=== PATIENT | female | born 1965 | race Two or more races ===

== ENCOUNTER 2018-04-24 14:30 | Outpatient (RCR) | payer OTHER, SELFPAY ==
--- NOTE | 2018-03-27 14:28 | HP.PTEVAL_ITS ---
Patient's Visit Information MAGDA SHIELDS is a 52 year old F referred to Physical Therapy by Lv Alvares MD with a diagnosis of RIGHT ANKLE INJURY /FRACTURE. Date of Evaluation: 03/27/18 Physical Therapist: Juan Rojas PT, - Visit Plan Frequency: 1-2x /Week Duration: 4 Weeks Plan: intiate strengthing /proprioception ex's for ankle,flexablity calf, progress to LE ex's at gym on own. ,genralized crosstraining bike/eliptical - Subjective Subjective: This 52 y/o female presents to physical therapy with right ankle injury /fracture. Patient was 5k run twisted right ankle caused immediated pain.DOI injury January 13. Patient went to ER [facility] did x-rays non-displace fx fibula. Patient was in boot 8weeks . Patient was NWB right ankle 2weeks ,then progressed to WBAT gradually went to cruthes.Patient removed boot 2weeks ago and progressed to no device. Patient conts to have snapping lateral ankle, Denies parathesia/tingling. Patient able to do stairs.Patient goal is to return no limiations with ADL'S and job demands.Patient had x-rays 6weeks looked good. SOCIAL: . VOCATION: coun[employer] - Pain Right Ankle Pain Intensity (Out of 10): 1 Pain Intensity Range: 10 - Objective POSTURE: normal arch. GAIT: normal nai reciprocal pattern. PROPRIOCEPTION : intcat. AROM: dorsiflexion 10 degrees,plantarflexion 65 degrees,eversion 10 degrees ,inversion 45 degrees. MMT: peroneous/dorsiflexion/plantarflexion / posterior tibials 4/5. NEURO:intact. FLEXABLITY: G-SOLEUS WFL - Goals Goal 1:: Patient to be Independant with HEP Goal Time Frame: 2-4 Weeks Goal 2:: Patient improve proprioception left compared right normal Goal Time Frame: 2-4 Weeks Goal 3:: Patient have no pain with progression of strengthening and proprioception. Goal Time Frame: 2-4 Weeks Goal 4:: Patient gradually progress to light jogging without symptoms Goal Time Frame: 2-4 Weeks - Rehabilitation Potential Physical Therapy Diagnosis: This 52 y/o female sustained fx fibula January 13 boot 8weeks progessed FWB no pain c/o ocassionally popping lateral tendon better, goal to retun to running Rehabilitation Potential: Good - Anticipated Interventions Patient/Client Instruction: Educate patient on: Condition, Plan of Care For the Purpose of:: To increase ROM, To improve muscle performance and motor function, To increase tolerance to activity/condition/position, To improve ability of physical actions for home/community/work/leisure, To improve gait and locomotor functions, To increase flexibility/ROM, To improve ability to perform tasks related to life management Other: running Therapeutic Exercise to Include: Strength training, Flexibilty training, Passive ROM, Active ROM Comment: ankle,proprioception For the Purpose of:: To increase ROM, To improve muscle performance and motor function, To improve ability to perform ADL's, To increase tolerance to activity /condition/position, To improve performance and independence with ADL's, To improve ability of physical actions for home/community/work/leisure, To improve health of tissue, To decrease soft tissue restriction, To increase flexibility/ ROM, To improve endurance Other: running Thank you for the opportunity to evaluate your patient. For Medicare and Medicare HMO plans, please review the plan of care and approve it. It will need to be FAXED BACK to us at [phone] for Medicare purposes. Please let me know if there are questions or concerns regarding this plan of care. Physician Signature: Date:
--- NOTE | 2018-08-15 14:09 | HP.PT.NRP ---
HP - Discharge Summary (1) - Patient Information MAGDA SHIELDS was seen in my office for initial evaluation on 03/27/18. The following Plan of Care was established for this patient: Initial Frequency: 1-2x /Week Initial Duration: 4 Weeks - Anticipated Interventions Patient/Client Instruction: Educate patient on: Condition, Plan of Care For the Purpose of:: To increase ROM, To improve muscle performance and motor function, To increase tolerance to activity/condition/position, To improve ability of physical actions for home/community/work/leisure, To improve gait and locomotor functions, To increase flexibility/ROM, To improve ability to perform tasks related to life management Other: running Therapeutic Exercise to Include: Strength training, Flexibilty training, Passive ROM, Active ROM For the Purpose of:: To increase ROM, To improve muscle performance and motor function, To improve ability to perform ADL's, To increase tolerance to activity/condition/position, To improve performance and independence with ADL's, To improve ability of physical actions for home/community/work/leisure, To improve health of tissue, To decrease soft tissue restriction, To increase flexibility/ROM, To improve endurance Other: running This patient was last seen in our office . Pertinent comments regarding their Physical therapy will appear below: At this point I will be discontinuing this patient from physical therapy. I would be happy to see this patient again in the future if found appropriate by the physician. Thank you! Juan Rojas, PT, Cert MDT, OCS
== END 2018-04-24 19:00 | disposition home or self-care (01) ==
LOC: PT 14:30
PROVIDERS: Family Provider Family Medicine; PCP Family Medicine; Visit Provider Family Medicine
DX: S82.891D Other fracture of right lower leg, subsequent encounter for closed fracture with routine healing (principal)
CPT/HCPCS: 97110; 97161

== ENCOUNTER → 2018-06-19 18:46 | Outpatient (CLI) | payer OTHER, SELFPAY ==
[2018-06-25 11:43] LABS: HPV APTIMA, High Risk Negative (Negative)
== END ==
PROVIDERS: Family Provider Family Medicine; PCP Family Medicine; Referring Provider Obstetrics & Gynecology; Visit Provider Obstetrics & Gynecology
DX: Z12.4 Encounter for screening for malignant neoplasm of cervix (principal)
CPT/HCPCS: 87624; 88175; G0145

== ENCOUNTER → 2019-07-16 16:18 | Outpatient (CLI) | payer OTHER, SELFPAY ==
[2019-07-16 17:54] LABS: Absolute Lymphocyte Count 1.69 X10^3/uL (0.83-4.51); Absolute Neutrophil Count 2.9 X10^3/uL (2.0-7.7); Basophil# 0.07 X10^3/uL; Basophil% 1.4 % (0-1); Hematocrit 40.7 % (37-47); Hemoglobin 13.3 g/dL (12.0-15.0); Lymphocyte # 1.69 X10^3/ul (4.0); Lymphocyte % 33.1 % (19-41); Mean Corp Hgb Conc 32.7 g/dL (32-36); Mean Corpuscular Hgb 30.8 pg (27.0-32.0); Mean Corpuscular Volume 94.2 fL (81-99); Mean Platelet Vol. 9.8 fl (6.2-12.0); Monocyte# 0.38 X10^3/uL; Monocyte% 7.5 % (0-10); NRBC Flagged by Analyzer 0 % (0-5); Neutrophil # 2.85 X10^3/uL (2.7-7.7); Neutrophil % 55.8 % (47-70); Platelet Count 292 K/mm3 (150-450); RBC Distribution Width CV 13.2 % (11.6-14.6); RBC Distribution Width SD 46.2 fl (35.1-43.9); Red Blood Count 4.32 M/mm3 (4.2-5.4); White Blood Count 5.1 K/mm3 (4.4-11.0)
[2019-07-16 18:39] LABS: AST(SGOT) 14 U/L (15-37); Alanine Aminotransfer ALT/SGPT 17 U/L (13-56); Alkaline Phosphatase 70 U/L (45-117); Anion Gap 4 (5-15); BUN 13 mg/dL (7-18); BUN/Creat Ratio 13.8 RATIO (10-20); Bilirubin, Direct 0.14 mg/dL (0.00-0.30); Calcium,Total 8.4 mg/dL (8.5-10.1); Chloride 108 mmol/L (98-107); Creatinine, Serum 0.94 mg/dL (0.55-1.02); EST Glomerular Filtration Rate 67 mL/min (>60); Est Glom Filt Rate - Afr Amer 80 mL/min (>60); Glucose 99 mg/dL (74-106); Sodium Level 141 mmol/L (136-145)
[2019-07-19 03:07] LABS: QNTFERON TB Mitogen Value > 10.00 IU/mL (.); QNTFERON TB Nil Value 0.07 IU/mL (.); QNTFERON TB1+ Ag Value 0.08 IU/mL (.); QNTFERON TB2+ Ag Value 0.06 IU/mL (.)
[2019-07-19 09:53] LABS: QNTIFERON TB Positive Criteria Negative (Negative)
== END ==
PROVIDERS: Family Provider Family Medicine; PCP Family Medicine; Referring Provider Dermatology Pediatric Dermatology; Visit Provider Dermatology Pediatric Dermatology
DX: L82.1 Other seborrheic keratosis (principal); L81.4 Other melanin hyperpigmentation; D22.5 Melanocytic nevi of trunk; L40.0 Psoriasis vulgaris; L81.5 Leukoderma, not elsewhere classified; Z79.899 Other long term (current) drug therapy; Z71.89 Other specified counseling
CPT/HCPCS: 36415; 80048; 80076; 85025; 86480

== ENCOUNTER → 2019-10-01 11:17 | Outpatient (CLI) | payer OTHER, SELFPAY ==
[2019-10-01 13:55] LABS: Absolute Lymphocyte Count 1.52 X10^3/uL (0.83-4.51); Absolute Neutrophil Count 2.6 X10^3/uL (2.0-7.7); Basophil# 0.07 X10^3/uL; Basophil% 1.5 % (0-1); Eosinophil# 0.09 X10^3/uL; Eosinophils% 1.9 % (0-5); Hematocrit 40.8 % (37-47); Lymphocyte # 1.52 X10^3/ul (4.0); Lymphocyte % 31.9 % (19-41); Mean Corp Hgb Conc 31.9 g/dL (32-36); Mean Corpuscular Hgb 30.3 pg (27.0-32.0); Mean Corpuscular Volume 95.1 fL (81-99); Mean Platelet Vol. 9.9 fl (6.2-12.0); Monocyte# 0.48 X10^3/uL; Monocyte% 10.1 % (0-10); NRBC Flagged by Analyzer 0 % (0-5); Neutrophil % 54.4 % (47-70); Platelet Count 297 K/mm3 (150-450); RBC Distribution Width CV 14.6 % (11.6-14.6); RBC Distribution Width SD 50.4 fl (35.1-43.9); Red Blood Count 4.29 M/mm3 (4.2-5.4); White Blood Count 4.8 K/mm3 (4.4-11.0)
== END ==
PROVIDERS: PCP Family Medicine; Referring Provider Dermatology; Visit Provider Dermatology
DX: L40.0 Psoriasis vulgaris (principal); Z79.899 Other long term (current) drug therapy
CPT/HCPCS: 36415; 85025

== ENCOUNTER → 2020-08-18 13:06 | Outpatient (CLI) | payer OTHER, SELFPAY ==
[2020-08-21 08:37] LABS: HPV APTIMA, High Risk Negative (Negative)
== END ==
PROVIDERS: PCP Family Medicine; Visit Provider Obstetrics & Gynecology
DX: Z12.4 Encounter for screening for malignant neoplasm of cervix (principal)
CPT/HCPCS: 87624; 88175; G0145